=== PATIENT | female | born 1950 | race Caucasian/White ===

== ENCOUNTER 2024-06-28 15:17 | Inpatient (IN) | payer OTHER, MEDICAID ==
[~2024-06-28] VITALS: Ht 144.8 cm; Wt 66.3 kg
[2024-06-28 15:20] VITALS: O2SAT 98
[2024-06-28 18:23] LABS: BASOPHILS % 0.6 % (0.0-2.0); EOSINOPHILS % 2.1 % (0.0-5.0); HEMATOCRIT. 35.6 % (36.0-48.0); HEMOGLOBIN. 11.4 g/dL (12.0-16.0); LYMPHOCYTES % 27.7 % (20.0-50.0); MEAN CORPUSCULAR HEMOGLOBIN 26.8 pg (28.0-32.0); MEAN CORPUSCULAR HGB CONC 32.1 g/dL (31.0-37.0); MEAN CORPUSCULAR VOLUME 83.5 fL (81.0-99.0); MONOCYTES % 10.9 % (2.0-8.0); NEUTROPHILS % 58.7 % (40.0-76.0); PLATELET 207 x1000/uL (130-400); RED BLOOD CELL COUNT 4.26 mill/uL (4.2-5.4); RED CELL DISTRIBUTION WIDTH 15.3 % (11.6-14.6)
[2024-06-28 18:30] LABS: CHLORIDE 103 mEq/L (98-107); POTASSIUM 4.3 mEq/L (3.5-5.1); SODIUM 135 mEq/L (136-145)
[2024-06-28 18:31] LABS: CALCIUM 10.4 mg/dL (8.7-10.4); CARBON DIOXIDE 24 mEq/L (21-32)
[2024-06-28 18:36] LABS: CREATININE 1.1 mg/dL (0.6-1.0); GLUCOSE 127 mg/dL (70-105); UREA NITROGEN BLOOD 18 mg/dL (9-23)
[2024-06-28 18:54] LABS: TROPONIN I HIGH SENSITIVITY < 4 ng/L (3.0-34)
[2024-06-28 21:45] LABS: TROPONIN I HIGH SENSITIVITY < 4 ng/L (3.0-34)
[2024-06-29] MEDS ORDERED: ACETAMINOPHEN 325MG TABLET PO PRN (12:45)
[2024-06-29] MEDS ORDERED: HYDROCODONE/ACETAMINOPHEN 5/325MG TABLET PO PRN (12:45)
[2024-06-29] MEDS ORDERED: ONDANSETRON HCL 4MG/2ML INJ IV PRN (12:45)
[2024-06-29] MEDS ORDERED: IPRATROPIUM/ALBUTEROL 0.5-3(2.5)MG/3ML NEB HHN PRN (12:45)
[2024-06-29 13:10] VITALS: BP 132/57; PULSE 64; RESP 18; TEMP 36.5848
[2024-06-29] MEDS ORDERED: NALOXONE HCL 0.4MG/ML VIAL IV PRN (13:15)
[2024-06-29] MEDS: CLOPIDOGREL 75MG TABLET PO SCH (13:58)
[2024-06-29] MEDS ORDERED: METF-873 PO (14:32)
[2024-06-29] MEDS ORDERED: CITA20TA75 MT (14:42)
[2024-06-29] MEDS ORDERED: LOSA1TAB34 MT (14:42)
[2024-06-29] MEDS ORDERED: OMEP20TA23 MT (14:43)
[2024-06-29 16:00] VITALS: BP 127/57; PULSE 69; RESP 18; TEMP 36.6696; O2SAT 97
[2024-06-29 20:00] VITALS: BP 127/57; PULSE 69; RESP 18; TEMP 36.72516; O2SAT 98
[2024-06-29] MEDS: ENOXAPARIN 40MG/0.4ML SYR SUBCUT SCH (20:39)
[2024-06-30] VITALS: BP 127/65; PULSE 76; RESP 18; TEMP 36.61404; O2SAT 100
[2024-06-30 02:00] VITALS: BP 134/62; PULSE 68; RESP 18; TEMP 36.83628; O2SAT 98
[2024-06-30 08:00] VITALS: BP 128/61; PULSE 65; RESP 18; TEMP 35.78064; O2SAT 97
[2024-06-30] MEDS: ASPIRIN 81MG EC TABLET PO SCH (08:49)
[2024-06-30 12:00] VITALS: BP 127/64; PULSE 73; RESP 18; TEMP 36.72516; O2SAT 98
[2024-06-30 12:36] LABS: POTASSIUM 5.1 mEq/L (3.5-5.1)
[2024-06-30 12:37] LABS: CALCIUM 11.2 mg/dL (8.7-10.4)
[2024-06-30 12:40] LABS: BASOPHILS % 0.8 % (0.0-2.0); EOSINOPHILS % 3.2 % (0.0-5.0); HEMATOCRIT. 39.3 % (36.0-48.0); HEMOGLOBIN. 12.9 g/dL (12.0-16.0); LYMPHOCYTES % 43.9 % (20.0-50.0); MEAN CORPUSCULAR HEMOGLOBIN 27.2 pg (28.0-32.0); MEAN CORPUSCULAR HGB CONC 32.9 g/dL (31.0-37.0); MEAN CORPUSCULAR VOLUME 82.6 fL (81.0-99.0); MEAN PLATELET VOLUME 7.9 fl (7.4-10.4); MONOCYTES % 11.7 % (2.0-8.0); NEUTROPHILS % 40.4 % (40.0-76.0); PLATELET 252 x1000/uL (130-400); RED BLOOD CELL COUNT 4.75 mill/uL (4.2-5.4); RED CELL DISTRIBUTION WIDTH 15.5 % (11.6-14.6); WHITE BLOOD COUNT 6.5 x1000/uL (4.5-11.0)
[2024-06-30 12:46] LABS: T4 FREE 1.04 ng/dL (0.89-1.76)
[2024-06-30 12:47] LABS: THYROID STIMULATING HORMONE 1.33 uIU/mL (0.55-4.78)
[2024-06-30 16:00] VITALS: BP 118/64; PULSE 74; RESP 18; TEMP 36.89184; O2SAT 98
[2024-06-30 20:00] VITALS: BP 131/68; PULSE 70; RESP 19; TEMP 36.6696; O2SAT 99
[2024-06-30] MEDS ORDERED: IOHEXOL-350 100 ML BOTTLE ONE (23:11)
[2024-07-01] VITALS: BP 137/70; PULSE 90; RESP 18; TEMP 36.3918; O2SAT 99
[2024-07-01 04:00] VITALS: BP 104/44; PULSE 68; RESP 18; TEMP 36.55848; O2SAT 98
[2024-07-01 08:00] VITALS: BP 129/59; PULSE 68; RESP 18
[2024-07-01 12:00] VITALS: BP 138/69; PULSE 70; RESP 18; TEMP 36.72516; O2SAT 95
== END 2024-07-01 14:52 | disposition home or self-care (01) | DRG 74 ==
LOC: ER 15:17 → EDBEDREQ 18:22 → 5WST 22:07 → 7EST 06-29 13:01
PROVIDERS: ADMIT Internal Medicine; ATTEND Internal Medicine
DX: G90.8 Other disorders of autonomic nervous system (principal); N17.9 Acute kidney failure, unspecified; E11.9 Type 2 diabetes mellitus without complications; E78.5 Hyperlipidemia, unspecified; I10 Essential (primary) hypertension; I25.10 Atherosclerotic heart disease of native coronary artery without angina pectoris; R07.89 Other chest pain; Z95.1 Presence of aortocoronary bypass graft
CPT/HCPCS: 36415; 71045; 71275; 80048; 80061; 83036; 83880; 84439; 84443; 84484; 85025; 85379; 93005; 93880; 99285; J1650; Q9967